=== PATIENT | female | born 1995 | race Caucasian/White ===

== ENCOUNTER 2018-03-21 20:29 | Inpatient (IN) | payer MEDICAID ==
[2018-03-21] MEDS ORDERED: MISOPROSTOL 200 MCG TAB PR (22:00)
[2018-03-21] MEDS ORDERED: CARBOPROST 250 MCG INJ IM (22:00)
[2018-03-21] MEDS ORDERED: IBUPROFEN 600 MG TAB PO (22:00)
[2018-03-21] MEDS ORDERED: LIDOCAINE 1% (MPF) 30 ML INJ INJ (22:00)
[2018-03-21] MEDS ORDERED: METHYLERGONOVINE 0.2 MG INJ IM (22:00)
[2018-03-21] MEDS ORDERED: OXYTOCIN 30 UNITS/LR 500 ML IV ×2 (22:00)
[2018-03-21] MEDS: LACTATED RINGER'S 1,000 ML IV* (23:06)
[2018-03-21] MEDS: AMPICILLIN 2 GM/NS (PMX) 100 ML IV (23:06)
[2018-03-21 23:46] LABS: ADD MAN DIFF? NO
[2018-03-21 23:53] LABS: BASOPHILS % 0.2 % (0.0-2.0); EOSINOPHILS # 0.1 10^3/ul (0.0-0.5); EOSINOPHILS % 0.5 % (0.0-7.0); HEMATOCRIT 36.4 % (37.0-47.0); HEMOGLOBIN 12.6 g/dl (12.0-16.0); LYMPHOCYTES # 2.4 10^3/ul (0.8-2.9); LYMPHOCYTES % 24.2 % (15.0-51.0); MEAN CORPUSCULAR HEMOGLOBIN 32.1 pg (29.0-33.0); MEAN CORPUSCULAR HGB CONC 34.6 g/dl (32.0-37.0); MEAN CORPUSCULAR VOLUME 92.9 fl (82.0-101.0); MEAN PLATELET VOLUME 11.2 fl (7.4-10.4); MONOCYTE # 0.8 10^3/ul (0.3-0.9); NEUTROPHIL # 6.6 10^3/ul (1.6-7.5); NEUTROPHILS % 66.6 % (39.0-77.0); PLATELET COUNT 131 10^3/UL (140-415); RED BLOOD COUNT 3.92 10^6/ul (4.20-5.40); RED CELL DISTRIBUTION WIDTH 12.7 % (11.5-14.5)
[2018-03-21 23:53] LABS: WHITE BLOOD COUNT 9.8 10^3/ul (4.8-10.8)
[2018-03-22 00:11] LABS: INR 0.85; PROTIME 11.7 Sec (11.9-14.9); PT RATIO 0.9
[2018-03-22 00:12] LABS: PARTIAL THROMBOPLASTIN TIME 25.8 Sec (23.0-35.0)
[2018-03-22] MEDS: AMPICILLIN 1 GM/NS (PMX) 50 ML IV ×4 (03:07→15:08)
[2018-03-22] MEDS: LACTATED RINGER'S 1,000 ML IV* ×4 (06:05→18:20)
[2018-03-22] MEDS: BUTORPHANOL 2 MG INJ IV (06:05)
[2018-03-22] MEDS ORDERED: FENTAnyl 2MCG/ML-ROPIV 0.2% 100 ML (09:24)
[2018-03-22] MEDS ORDERED: EPHEDrine SULFATE 50 MG/5 ML SYG (09:30)
[2018-03-22] MEDS: LACTATED RINGER'S 1,000 ML IV (09:37)
[2018-03-22] MEDS ORDERED: NALOXONE (0.4 MG/ML) INJ IV (10:00)
[2018-03-22] MEDS ORDERED: ONDANSETRON 4 MG INJ IV (10:00)
[2018-03-22] MEDS ORDERED: EPHEDrine SULFATE 50 MG/5 ML SYG IV (10:00)
[2018-03-22] MEDS ORDERED: FENTAnyl 2MCG/ML-ROPIV 0.2% 100 ML BAG EPI (10:00)
[2018-03-22] MEDS: OXYTOCIN 30 UNITS/LR 500 ML IV ×4 (10:43→21:00)
[2018-03-22 15:12] LABS: RAPID PLASMA REAGIN NONREACTIVE (NR)
[2018-03-22] MEDS ORDERED: CARBOPROST 250 MCG INJ IM (16:30)
[2018-03-22] MEDS ORDERED: MISOPROSTOL 200 MCG TAB PR (16:30)
[2018-03-22] MEDS ORDERED: OXYTOCIN 30 UNITS/LR 500 ML IV (16:30)
[2018-03-22] MEDS ORDERED: METHYLERGONOVINE 0.2 MG INJ IM (16:30)
[2018-03-22] MEDS: IBUPROFEN 600 MG TAB PO ×2 (18:00→23:52)
[2018-03-22] MEDS: BENZOCAINE 20% 56 ML SPRAY TOP (18:45)
[2018-03-22] MEDS: LANOLIN 7 GM TUBE TOP (18:45)
[2018-03-22 19:17] LABS: AMPHETAMINE/METHAMPHETAMINE NEGATIVE (NEGATIVE); BARBITURATES NEGATIVE (NEGATIVE); BENZODIAZEPINES NEGATIVE (NEGATIVE); CANNABINOIDS NEGATIVE (NEGATIVE); COCAINE NEGATIVE (NEGATIVE); OPIATES NEGATIVE (NEGATIVE)
[2018-03-22] MEDS: HYDROCODONE/APAP (5/325) TAB PO (20:57)
[2018-03-23] MEDS: LACTATED RINGER'S 1,000 ML IV* ×3 (00:26→16:26)
[2018-03-23] MEDS: IBUPROFEN 600 MG TAB PO ×3 (05:49→17:56)
[2018-03-23 06:22] LABS: ADD MAN DIFF? NO
[2018-03-23 06:26] LABS: BASOPHILS % 0.2 % (0.0-2.0); EOSINOPHILS # 0.1 10^3/ul (0.0-0.5); EOSINOPHILS % 0.8 % (0.0-7.0); HEMATOCRIT 32.9 % (37.0-47.0); HEMOGLOBIN 11.2 g/dl (12.0-16.0); LYMPHOCYTES # 2.3 10^3/ul (0.8-2.9); LYMPHOCYTES % 18.7 % (15.0-51.0); MEAN CORPUSCULAR HEMOGLOBIN 32.2 pg (29.0-33.0); MEAN CORPUSCULAR VOLUME 94.5 fl (82.0-101.0); MEAN PLATELET VOLUME 11.5 fl (7.4-10.4); MONOCYTE # 0.9 10^3/ul (0.3-0.9); MONOCYTES % 7.5 % (0.0-11.0); NEUTROPHIL # 8.8 10^3/ul (1.6-7.5); NEUTROPHILS % 72.1 % (39.0-77.0); PLATELET COUNT 102 10^3/UL (140-415); RED BLOOD COUNT 3.48 10^6/ul (4.20-5.40); RED CELL DISTRIBUTION WIDTH 12.9 % (11.5-14.5)
[2018-03-23 06:26] LABS: WHITE BLOOD COUNT 12.2 10^3/ul (4.8-10.8)
[2018-03-23 07:11] LABS: HEPATITIS B SURFACE ANTIGEN NEGATIVE (NEGATIVE)
[2018-03-24] MEDS: LACTATED RINGER'S 1,000 ML IV* (00:26)
[2018-03-24] MEDS: IBUPROFEN 600 MG TAB PO ×3 (00:56→12:00)
[2018-03-24] MEDS: HYDROCODONE/APAP (5/325) TAB PO (02:10)
[2018-03-24] MEDS: DIPHTH/TET/ACEL PERTUSS (ADULT) 0.5 ML VIAL IM* (09:13)
== END 2018-03-24 18:44 | disposition home or self-care (01) | DRG 807 ==
LOC: OBT 20:29 → PP1 03-22 18:08 → L-D 20:31 → OBT 21:54 → L-D 21:05
PROVIDERS: Obstetrics & Gynecology
PROC: 10D07Z6 Extraction of Products of Conception, Vacuum, Via Natural or Artificial Opening (ICD-10-PCS; principal; 2018-03-22)
PROC: 0HQ9XZZ Repair Perineum Skin, External Approach (ICD-10-PCS; 2018-03-22)
DX: O76 Abnormality in fetal heart rate and rhythm complicating labor and delivery (principal); Z37.0 Single live birth; O70.0 First degree perineal laceration during delivery; O69.1XX0 Labor and delivery complicated by cord around neck, with compression, not applicable or unspecified; Z3A.38 38 weeks gestation of pregnancy
CPT/HCPCS: 36415; 62319; 80307; 85025; 85610; 85730; 86592; 86850; 86900; 86901; 87340; 90715; 99464